=== PATIENT | male | born 1970 | race Caucasian/White ===

== ENCOUNTER 2020-11-16 17:49 | Emergency (ER) | payer OTHER, SELFPAY ==
[2020-11-16] MEDS ORDERED: Sodium Chloride 0.9% 1,000 ML ONE (18:09)
[2020-11-16 18:26] LABS: INR-International Normal Ratio 1.1; Prothrombin Time 13.9 sec (12.0-14.7)
[2020-11-16 18:30] LABS: #Basophils 0.1 thou/uL (0.0-0.2); #Eosinphils 0.1 thou/uL (0.0-0.7); #Lymphocytes 1.2 thou/uL (1.20-3.40); #Monocytes 0.7 thou/uL (0.11-0.59); #Neutrophils 8.6 thou/uL (1.40-6.50); %Basophils 0.5 % (0.0-1.0); %Eosinophils 0.8 % (0.0-10.0); %Lymphocytes 10.8 % (21.0-51.0); %Neutrophils 80.9 % (42.0-75.0); Hemoglobin 14.3 g/dL (14.0-18.0); Mean Corpuscular HGB CONC 32.2 g/dL (32.0-36.0); Mean Corpuscular Volume 90.1 fL (78.0-98.0); Mean Platelet Volume 7.7 fL (7.4-10.4); Platelet Count 243 thou/uL (130-400); RBC Distribution Width 11.8 % (11.5-14.5); Red Blood Cell (RBC) Count 4.92 mill/uL (4.70-6.10); White Blood Cell (WBC) Count 10.6 thou/uL (4.8-10.8)
[2020-11-16] MEDS ORDERED: Dexamethasone 4 mg/ml Vial ONE (18:30)
[2020-11-16 18:34] LABS: ALT (SGPT) 22 U/L (8-55); AST (SGOT) 19 U/L (5-34); Albumin 4.5 g/dL (3.5-5.0); Alkaline Phosphatase 64 U/L (40-110); Anion Gap 15 mmol/L (10-20); BUN (Urea Nitrogen) 7 mg/dL (8.9-20.6); Bilirubin, Total 1.7 mg/dL (0.2-1.2); Calc. Creatinine Clearance 0 mL/min (70-130); Calcium 8.9 mg/dL (7.8-10.44); Carbon Dioxide 24 mmol/L (22-29); Chloride 97 mmol/L (98-107); Globulin 3.1 g/dL (2.4-3.5); Glucose 107 mg/dL (70-105); Potassium 3.8 mmol/L (3.5-5.1); Protein, Total 7.6 g/dL (6.0-8.3); Sodium 132 mmol/L (136-145)
[2020-11-16] MEDS ORDERED: Ondansetron PF 4 MG/2 ML Vial ONE (22:05)
[2020-11-16] MEDS ORDERED: Morphine 4 MG/ML VIAL ONE (22:05)
== END 2020-11-16 22:17 | disposition home or self-care (01) ==
LOC: NAV ERS 17:49
DX: R13.19 Other dysphagia (principal); R22.1 Localized swelling, mass and lump, neck; T81.89XA Other complications of procedures, not elsewhere classified, initial encounter; I10 Essential (primary) hypertension; K21.9 Gastro-esophageal reflux disease without esophagitis
CPT/HCPCS: 71045; 80053; 83605; 85025; 85610; 85730; 94760; 96374; 96375; J1100; J2270; J2405; J7050

== ENCOUNTER 2021-10-14 | Outpatient (CLI) | payer SELFPAY | END 2021-10-14 11:51 | disposition home or self-care (01) | DX: Z01.812 Encounter for preprocedural laboratory examination (principal) | CPT/HCPCS: 36415; 85025; 85610; 85730 ==